=== PATIENT | male | born 1980 | race Caucasian/White ===

== ENCOUNTER 2017-04-27 07:58 | Emergency (ER) | payer OTHER ==
[~2017-04-27] VITALS: Ht 177.8 cm; Wt 111.0 kg
[~2017-04-27 07:58] MED LIST: ANAPROX DS550 M1 PO; AUGMENTIN875 MG PO; CITALOPRAM HBR10 MG PO; FLOMAX0.4 MG PO; PERCOCET 5/31 TABLET PO; TRAZODONE HCL100 MG PO; ULTRAM50 MG PO; ZOFRAN4 MG PO
[2017-04-27 10:15] VITALS: BP 148/78
== END 2017-04-27 10:20 | disposition home or self-care (01) ==
LOC: EME 07:58
DX: R42 Dizziness and giddiness (principal); R11.0 Nausea; Z77.098 Contact with and (suspected) exposure to other hazardous, chiefly nonmedicinal, chemicals; Y99.0 Civilian activity done for income or pay; Z87.442 Personal history of urinary calculi; Z87.891 Personal history of nicotine dependence
CPT/HCPCS: 99281; 99284